=== PATIENT | female | born 1950 | race Caucasian/White ===

== ENCOUNTER → 2016-06-30 | Outpatient (CLI) | payer MEDICARE, BC ==
[~2016-06-30] MED LIST: ATIVAN0.5 MG PO; ATROVENT0.5 MG/2.5 INH; BROVANA15 MCG/2 M INH; CALTRATE 600 WI1 TAB PO; DALIRESP500 MCG PO; ESCITALOPRAM OX10 MG PO; LEVAQUIN500 MG PO; LOTENSIN20 MG PO; MIRTAZAPINE7.5 MG PO; NORVASC10 MG PO; OS-CAL 500+D31 EAC1 PO; PREDNISONE10 MG PO; PREDNISONE20 MG PO; PRILOSEC40 MG PO; PROVENTIL2.5 MG/3 M INH; PULMICORT0.25 MG/2 INH; PULMICORT0.5 MG/2 M INH; THERA M PLUS T1 EACH PO; VENTOLIN HFA8 GM INH; ZOLEDRONIC5 MG/100 M IV
== END | disposition short-term general hospital (02) ==
LOC: CLPULM 11:40
DX: J44.1 Chronic obstructive pulmonary disease with (acute) exacerbation (principal); I34.0 Nonrheumatic mitral (valve) insufficiency; I10 Essential (primary) hypertension; E83.52 Hypercalcemia; M81.0 Age-related osteoporosis without current pathological fracture